=== PATIENT | male | born 2000 | race Two or more races ===

== ENCOUNTER 2022-12-14 01:01 | Emergency (ER) | payer MEDICAID, OTHER ==
[~2022-12-14] VITALS: Ht 175.3 cm; Wt 83.6 kg
[2022-12-14 01:11] VITALS: BP 135/79; PULSE 72; RESP 16; TEMP 98.7
[2022-12-14] MEDS ORDERED: TETANUS-DIPTH-ACEL PERTUSSIS 0.5ML SYR Tdap IM ONE (02:45)
[2022-12-14 03:18] VITALS: O2SAT 97
== END 2022-12-14 03:25 | disposition home or self-care (01) ==
LOC: ER 01:04
DX: S61.012A Laceration without foreign body of left thumb without damage to nail, initial encounter (principal); W45.8XXA Other foreign body or object entering through skin, initial encounter; Y93.89 Activity, other specified; Y92.89 Other specified places as the place of occurrence of the external cause; Y99.8 Other external cause status
CPT/HCPCS: 12002; 90471; 90715